=== PATIENT | female | born 1970 | race Caucasian/White ===

== ENCOUNTER 2017-04-08 09:20 | Day surgery (SDC) | payer BC ==
[~2017-04-08] VITALS: Ht 157.5 cm; Wt 77.1 kg
[~2017-04-08 09:20] MED LIST: CYANOCOBAL1000 MCG/2 IM; KLONOPIN0.5 M1 PO; LEXAPRO20 MG PO; LISINOPRIL-HCT1 EAC3 PO; ROXICODONE5 MG PO; ZESTORETIC 20-1 EAC1 PO; ZOLOFT50 MG
[2017-04-08 10:00] VITALS: BP 124/76
[2017-04-08] MEDS ORDERED: ROXICODONE5 MG PO (13:21)
[2017-04-08 14:43] VITALS: BP 126/78
[2017-04-08 15:13] VITALS: BP 124/70
== END 2017-04-08 15:17 | disposition home or self-care (01) ==
LOC: SDC 09:20
PROVIDERS: Surgery
PROC: 08BX0ZZ Excision of Right Lacrimal Duct, Open Approach (ICD-10-PCS; principal; 2017-04-08)
DX: D05.11 Intraductal carcinoma in situ of right breast (principal); Z80.3 Family history of malignant neoplasm of breast; D64.9 Anemia, unspecified; I10 Essential (primary) hypertension; F41.8 Other specified anxiety disorders; Z98.84 Bariatric surgery status; Z88.0 Allergy status to penicillin
CPT/HCPCS: 84703; 93005; J1100; J1170; J2250; J2405; J3010; S0020